=== PATIENT | female | born 1965 | race Caucasian/White ===

== ENCOUNTER 2018-12-06 17:32 | Inpatient (IN) ==
[2018-12-06] MEDS ORDERED: SOLU-MEDROL IV ONE (18:02)
[2018-12-06] MEDS ORDERED: ZOFRAN IV ONE (18:02)
[2018-12-06] MEDS ORDERED: NS 1,000 ML IV ONE (18:02)
[2018-12-06] MEDS ORDERED: DUONEB (A & A) INH ONE (18:02)
--- NOTE | 2018-12-06 18:11 | PROVIDER DOCUMENTATION ---
HPI-Respiratory General - General Chief Complaint: Shortness of Breath Stated Complaint: CHEST PAIN Time Seen by Provider: 12/06/18 18:01 Source: patient Allergies/Adverse Reactions: Patient Allergies Allergy/AdvReac Type Severity Reaction Status Date / Time No Known Allergies Allergy Verified 10/01/14 20:10 Home Medications: Home Medication List Medication Instructions Recorded Confirmed Last Taken Type Azithromycin 250 mg PO DAILY #3 tab 12/09/18 Unknown Rx CefDINIR [Omnicef] 300 mg PO BID #14 cap 12/09/18 Unknown Rx Ipratropium/Albuterol INH 1 puff INH RTQ6H #1 inhaler 12/09/18 Unknown Rx [Combivent Respimat Inhaler] Nicotine Patch [Nicoderm Patch] 7 mg TD DAILY #21 patch.td24 12/09/18 Unknown Rx Nicotine Patch [Nicoderm Patch] 14 mg TD DAILY #21 patch.td24 12/09/18 Unknown Rx Nicotine Patch [Nicoderm Patch] 21 mg TD DAILY #21 patch.td24 12/09/18 Unknown Rx Prednisone See Taper PO DAILY #30 tab 12/09/18 Unknown Rx - History of Present Illness-Resp Nature of Presenting Problem: HPI: Pt states that all of a sudden at 4 pm she started to have severe chest tightness, SOB, and feeling warm all over. she could not catch her breathe. She has a history of COPD and still smokes 1 PPD. she also states she was having nausea and vomiting. she denies CP. No abdominal pain. Quality of Pain: reports: none Severity in ED: reports: moderate Onset/Duration: reports: 1-3 hours ago Timing: reports: still present Exposure: reports: unknown cause Cough Quality/Degree: reports: moderate Episode Frequency: chronic episodes Current Respiratory Medication Therapy: Initiated albuterol/atrovent inhale, Initiated steroid inhaler Modifying Factors: improves with: exertion Associated Symptoms: reports: cough, dizziness, shortness of breath Similar Symptoms Previously?: Yes Recently seen or treated by another doctor?: No Review of Systems - Adult - REVIEW OF SYSTEMS - ADULT Constitutional: reports: no symptoms reported Eyes: reports: no symptoms reported Ears, Nose, Mouth & Throat: reports: no symptoms reported Cardiovascular: reports: no symptoms reported. denies: chest pain, orthopnea, palpitations, syncope Respiratory: reports: see HPI, cough, dyspnea on exertion, shortness of breath Gastrointestinal: reports: no symptoms reported Genitourinary: reports: no symptoms reported Musculoskeletal: reports: no symptoms reported Integumentary: reports: no symptoms reported Neurological: reports: no symptoms reported Psychiatric: reports: no symptoms reported Endocrine: reports: no symptoms reported Hematologic/Lymphatic: reports: no symptoms reported Allergic/Immunologic: reports: no symptoms reported All Other Systems: Reviewed and Negative Past History - Adult - PAST MEDICAL HISTORY-ADULT Review of Records: reports: Old Records Reviewed, Nursing Assessment Review, Medications Reviewed, Social history reviewed & non-contributory. Major Childhood Illnesses: reports: denies history Cardiovascular: reports: denies history Respiratory: reports: COPD Gastrointestinal: reports: denies history Obstetrical/Gynecological: reports: denies history Genitourinary: reports: denies history Musculoskeletal: reports: denies history Neurological: reports: denies history Psychiatric: reports: denies history Endocrine/Immune: reports: denies history Other Conditions: reports: denies history - PRIOR SURGERIES/PROCEDURES Surgical/Procedure History: reports: cholecystectomy - IMMUNIZATION STATUS Childhood Immunizations: UTD Flu Vaccine: NUTD - FAMILY HISTORY Family History: reviewed, not pertinent - SOCIAL HISTORY Smoking: cigarettes, greater than 1 pack/day Provider spent 3-5 mins advising pt. on dangers of tobacco.: Discussed manners to quit use, and f/u contacts for add'l counseling. Substance Use: none/never Alcohol Use Frequency: never Living Situation: family Physical Exam-General - PHYSICAL EXAM-ADULT Initial Vital Signs Reviewed: Yes - CONSTITUTIONAL General Appearance: mild distress - EYES Eyes: pink conjunctivae - HEAD, EARS, NOSE, MOUTH & THROAT HENMT: normocephalic/atraumatic, moist mucous membranes - NECK Neck: non-tender, full range of motion, supple - RESPIRATORY Respiratory: chest non-tender, lungs clear, no pleuratic chest pain, decreased breath sounds. negative: crackles, rales, rhonchi, stridor, wheezing - CARDIOVASCULAR Cardiovascular: normal peripheral pulses, no edema, no gallop, tachycardia - GASTROINTESTINAL (ABDOMEN) Abdominal Exam: normal bowel sounds, non tender, soft, no organomegaly. negative: distended, guarding, rigid, rebound, tenderness - MUSCULOSKELETAL Back Exam: normal inspection Extremity: normal range of motion, non-tender, normal gait Peripheral Pulses: radial (R): 2+, radial (L): 2+, dorsalis-pedis (R): 2+, dorsalis-pedis (L): 2+ - SKIN Integumentary: normal turgor, erythema - NEUROLOGIC Neurologic: grossly normal - PSYCHIATRIC Psych/Mental Status: normal mood/affect, normal thought content, normal thought process, oriented x 3 - HEART Score HEART Score: History: Slightly Suspicious HEART Score: ECG: Normal HEART Score: Age: 45-65 Years HEART Score: Risk Factors for Atherosclerotic Disease: 1 or 2 Risk Factors HEART Score: Troponin: < or = Normal Limit Total HEART Score:: 2 Progress - PLAN OF CARE/RESULTS Progress/Plan/Lab Results: Orders Category Date Time Status Admit - [facility] Routine AdmDCTranf 12/06/18 22:49 Active Activity - Up with Assistance ORDERED Care 12/06/18 22:49 Active Elevate Head of Bed DIRECTED Care 12/06/18 22:49 Active Encourage Fluids DIRECTED Care 12/06/18 22:49 Active Intake and Output-Strict Q 8-HR ASSESS Care 12/06/18 22:49 Active Nursing- Assist w/ IS as order ORDERED Care 12/06/18 22:49 Active Turn, Cough and Deep Breathe Q2HR Care 12/06/18 22:49 Active Vital Signs Order Q 8-HR ASSESS Care 12/06/18 22:49 Active Regular Diet Diet 12/06/18 Diet Enter Time Completed CT ANGIOGRM PULMONARY ARTERIES [CT] Stat Exams 12/06/18 18:14 Completed A1C HGB W EST AVG GLUCOSE [CHEM] Stat Lab 12/06/18 23:32 Completed ABG [RESP] Routine Lab 12/06/18 18:10 Completed BASIC METABOLIC PANEL [CHEM] Routine Lab 12/07/18 05:00 Completed CBC WITH DIFF [HEME] Routine Lab 12/07/18 05:00 Completed CBC WITH ELECTRONIC DIFF [HEME] Stat Lab 12/06/18 18:18 Completed CK PROFILE [SP CHEM] Stat Lab 12/06/18 18:18 Completed COMPREHENSIVE METABOLIC PANEL [CHEM] Stat Lab 12/06/18 18:18 Completed TROPONIN T Q6H Lab 12/06/18 23:32 Completed TROPONIN T Q6H Lab 12/07/18 05:00 Completed TROPONIN T Stat Lab 12/06/18 18:18 Completed 0.9% Sodium Chloride Inj [Ns] 1,000 ml Med 12/06/18 18:02 Discontinued IV 999 mls/hr Acetaminophen [Tylenol] Med 12/06/18 22:49 Discontinued 650 mg PO Q4H PRN PRN Albuterol 2.5MG/Ipratrop 0.5MG [Duoneb (A & A)] Med 12/06/18 18:02 Discontinued 3 ml INH NOW ONE Albuterol 2.5MG/Ipratrop 0.5MG [Duoneb (A & A)] Med 12/06/18 22:49 Discontinued 3 ml INH RTQ6H Arformoterol Neb [Brovana Neb] Med 12/07/18 07:30 Discontinued 15 microgm INH RTBID Azithromycin 500 mg/Ns [Zithromax 500 mg/Ns] Med 12/06/18 18:59 Discontinued 500 mg in 250 ml IV NOW Azithromycin 500 mg/Ns [Zithromax 500 mg/Ns] Med 12/07/18 18:00 Discontinued 500 mg in 250 ml IV Q24H CefTRIAXONE [Rocephin] 1 gm Med 12/06/18 18:59 Discontinued 0.9% Sodium Chloride Inj [Ns] 50 ml IV NOW CefTRIAXONE [Rocephin] 1 gm Med 12/07/18 16:00 Discontinued 0.9% Sodium Chloride Inj [Ns] 50 ml IV Q24H Enoxaparin [Lovenox] Med 12/06/18 22:49 Discontinued 40 mg SUBQ Q24H Famotidine [Pepcid] Med 12/06/18 22:49 Discontinued 20 mg PO BID Ibuprofen [Motrin] Med 12/06/18 22:49 Discontinued 600 mg PO Q6H PRN PRN Insulin Lispro [Humalog] Med 12/07/18 07:00 Discontinued See Protocol SUBQ 0700,1100,1600,2100 Methylprednisolone Sod Succ [Solu-Medrol] Med 12/06/18 23:00 Discontinued 40 mg IV Q8H Methylprednisolone Sod Succ [Solu-Medrol] Med 12/06/18 18:02 Discontinued 60 mg IV NOW ONE Nicotine Patch [Nicoderm Patch] Med 12/06/18 22:49 Discontinued 21 mg TD NOW ONE Ondansetron [Zofran] Med 12/06/18 18:02 Discontinued 4 mg IV NOW ONE Aerosol Treatments Routine Oth 12/06/18 18:03 Completed Aerosol Treatments Routine Ot 12/06/18 22:49 Completed Aerosol Treatments Stat Oth 12/06/18 18:03 Completed Aerosol Treatments Stat Ot 12/06/18 22:49 Completed Incentive Spirometer Routine Ot 12/06/18 22:49 Completed Oxygen Device Routine [facility] 12/06/18 22:49 Completed Pulse Oximetry Routine Ot 12/06/18 22:49 Completed EKG [EKG] Stat Ther 12/06/18 18:02 Draft Transfer/Admit Order [TRANSFER] Routine Transfer 12/06/18 20:58 Completed Result Diagrams: 12/09/18 07:10 12/09/18 07:10 - EKG 1 Time of EKG reading by physician:: 18:05 EKG Read and Signed by:: Ren Covington EKG Interpretation (*Must complete 3 of following elements*): Abnormal Rate: 121 Rhythm: sinus tachycardia Thor: normal QRS: normal TX Interval: normal ST Wave: normal Prior EKG Comparison: unchanged from prior - CT/MRI 1 Impression: Abnormal ([facility] [address] , [address], [place] [address] Department of Imaging Patient: MANAV BROWNADM Date: 12/06/18#: [id number] : 1965ADM Status: REG ERAcct#: [id number] Age/Sex: 53/FRoom/Bed: Loc: ED Ordering Physician: Ren Covington MD Family Physician: SOLA OMALLEY Reason for Procedure: fall Signed EXAM: CT ANGIOGRM PULMONARY ARTERIES INDICATION: fall TECHNIQUE: This exam was performed using automated exposure control, adjustment of mA or kV according to patient size, and/or use of iterative reconstruction technique. Thin section axial images and 3-D MIPS were obtained. COMPARISON: None. FINDINGS: There is no evidence of pulmonary embolism. There is mild thoracic aortic atherosclerotic disease. There is no evidence of aortic dissection or aneurysm. There is no cardiomegaly. There is no evidence of significant mediastinal or hilar lymphadenopathy. There are no abnormal mediastinal fluid collections. There are a couple of small patches of groundglass opacity in the upper lobes bilaterally suggesting mild nonspecific pneumonitis. There is mild linear scarring in the lingula and right middle lobe. The lungs are clear, otherwise. There is no pleural fluid collection and no pneumothorax. Limited views of the upper abdomen are grossly unremarkable. Limited views of the upper abdomen reveals a nonobstructing intrarenal stone at the upper pole of the right kidney. The upper abdomen is essentially unremarkable, otherwise. IMPRESSION: 1.A couple of small patches of groundglass opacity in the upper lobes bilaterally suggesting mild nonspecific pneumonitis. 2.No evidence of pulmonary embolism. 3.Other incidental/nonacute findings detailed above. Electronically signed by Daniel Green 12/06/2018 7:26 PM 12/06/181925 Interpreting Physician: Daniel Green MD Dictated Date/Time: 12/06/181918 cc: Ren Covington MD; SOLA OMALLEY) - CONSULTS/PCP/HOSPITALIST Notification #1 *Consult/PCP/Hospitalist*: [email or web address] Time Discussed: 22:30 Consult Disposition: Admit Departure - Departure Date of Disposition Decision: 12/06/18 Time of Disposition Decision: 22:30 DIAGNOSIS: COPD exacerbation Disposition: ADMITTED INPATIENT 09 Certified Medical Emergency: Emergent Condition: Stable - Critical Care Note This patient required my direct & personal management of CC.: No Attestation - Physician/ CHARLIE Attestation Patient care was provided by Advanced Practice Provider:: No The physician spent face to face time with patient:: Yes Advanced Practice Provider documentation review:: Supervising physician onsite and consulted in the evaluation and care of this patient. The physician did have a face to face encounter with the patient.
[2018-12-06 18:18] LABS: ALLEN TEST YES; BE -2.4 mmoll (-3.0-3.0); BLOOD TYPE ARTERIAL; HCO3-(ACT) 22.7 mmoll (20.0-26.0); METHB 1.1 % (0.0-1.5); O2(CT) 21.1 mL/dL (15.0-23.0); PCO2(98.6) 35 mmHg (35-45); PO2(98.6) 59 mmHg (60-100); SAMPLE BLOOD; SAO2 95.1 % (95.0-100.0); THB 17.1 g/dL (11.5-17.4)
[2018-12-06 18:22] LABS: MODALITY VENTIMASK
[2018-12-06 18:31] LABS: BASO# 0.03 X1000 (0.0-0.2); BASO% 0.2 % (0.0-0.8); EOS# 0.12 X1000 (0.0-0.7); EOS% 0.6 % (0.0-10.0); HEMATOCRIT 49.4 % (37.0-47.0); HEMOGLOBIN 17.1 g/dL (12.0-16.0); IMM GRAN% 0.5 % (0.0-0.5); LYMPH% 15.5 % (20.5-51.1); MCH 30.8 PG (27-31); MCHC 34.6 g/dL (33-37); MONO# 1.38 X1000 (0.11-0.59); MONO% 7.1 % (1.7-9.3); MPV 10.4 FL (7.4-10.4); NEUT# 14.77 X1000 (1.4-6.5); NEUT% 76.1 % (42.2-75.2); PLT 352 X1000 (130-400); RBC 5.55 XMIL (4.2-5.4); RDW 12.6 % (11.5-14.5)
[2018-12-06 18:55] LABS: AGAP 17; ALB/GLOB RATIO 1.9; ALBUMIN 4.3 g/dL (3.5-5.0); ALKALINE PHOSPHATASE 119 U/L (32-104); BUN 15 mg/dL (8-22); CALCIUM 9.1 mg/dL (8.8-10.2); CHLORIDE 104 mmol/L (98-107); CK PROFILE 48 U/L (24-173); COSMO 289; CREATININE 0.9 mg/dL (0.5-0.9); ESTIMATED GFR > 60; GLUCOSE 218 mg/dL (70-104); GOT 11 U/L (10-30); GPT 12 U/L (10-36); POTASSIUM 3.7 mmol/L (3.5-5.1); SODIUM 141 mmol/L (136-145); TCO2 20 mmol/L (25-35); TOTAL BILIRUBIN 0.26 mg/dL (0.20-1.00); TOTAL PROTEIN 6.6 g/dL (6.3-8.3)
[2018-12-06] MEDS ORDERED: ZITHROMAX 500 MG/NS 500 MG/250 ML IVPB IV ONE (18:59)
[2018-12-06] MEDS ORDERED: ROCEPHIN 1 GM in NS 50 ML IV ONE (18:59)
--- NOTE | 2018-12-06 19:28 | Diag Imaging Result Doc PS360 ---
EXAM: CT ANGIOGRM PULMONARY ARTERIES INDICATION: fall TECHNIQUE: This exam was performed using automated exposure control, adjustment of mA or kV according to patient size, and/or use of iterative reconstruction technique. Thin section axial images and 3-D MIPS were obtained. COMPARISON: None. FINDINGS: There is no evidence of pulmonary embolism. There is mild thoracic aortic atherosclerotic disease. There is no evidence of aortic dissection or aneurysm. There is no cardiomegaly. There is no evidence of significant mediastinal or hilar lymphadenopathy. There are no abnormal mediastinal fluid collections. There are a couple of small patches of groundglass opacity in the upper lobes bilaterally suggesting mild nonspecific pneumonitis. There is mild linear scarring in the lingula and right middle lobe. The lungs are clear, otherwise. There is no pleural fluid collection and no pneumothorax. Limited views of the upper abdomen are grossly unremarkable. Limited views of the upper abdomen reveals a nonobstructing intrarenal stone at the upper pole of the right kidney. The upper abdomen is essentially unremarkable, otherwise. IMPRESSION: 1.A couple of small patches of groundglass opacity in the upper lobes bilaterally suggesting mild nonspecific pneumonitis. 2.No evidence of pulmonary embolism. 3.Other incidental/nonacute findings detailed above. Electronically signed by Daniel Green 12/06/2018 7:26 PM
[2018-12-06] MEDS ORDERED: TYLENOL PO PRN (22:49)
[2018-12-06] MEDS ORDERED: NICODERM PATCH TD ONE (22:49)
--- NOTE | 2018-12-06 23:13 | HISTORY AND PHYSICAL ---
REASON FOR ADMISSION: Acute shortness of breath today. PRIMARY CARE PHYSICIAN: None. HISTORY OF PRESENT ILLNESS: Ms. Amanda Castro is a 53-year-old woman with past medical history of long-standing COPD, and is not followed up by any particular physician. She also smokes about a pack a day (patient says she wants to quit smoking in light of today's events). Said that while she was home early hours of this morning she developed sudden acute dyspnea and shortly afterwards started having coughing fits productive of yellowish-whitish sputum. No hemoptysis. Subsequently even threw up once at home, nonbloody emesis. Thereafter, her breathing got progressively worse, she started having profound palpitations and a left-sided chest pressure, nonradiating. She says the pain has eased some but still persist and was never relieved. She felt as if she was swelling from inside and about to burst. She admits to having some chills but no fever. She denies any PND or orthopnea. She denies any contact with anybody with colds. The [id number] at bedside says she noticed that the patient has been having bloodshot eyes which have gotten better. Patient also admits to having some mild oculonasal pruritus and occasional sneezing spells. Other than that, patient denies any GI or complaints. Denies any focal neurological complaints. No arthralgias or rash. REVIEW OF SYSTEMS: Twelve system review was done. Positive findings per HPI. ALLERGIES: No known allergies. MEDICATIONS: None. SOCIAL HISTORY: Smokes 1 pack a day. Lives alone. Does not do any alcohol or use drugs. FAMILY HISTORY: Only notable for ovarian cancer. SURGICAL HISTORY: Only cholecystectomy. LABORATORY WORK: White count 19,000, H and H 17 and 49, platelets 352,000, with 76% neutrophils. Potassium 3.2, BUN 15, creatinine 0.9. Glucose 218, alkaline phosphatase 119. Troponin's negative. Blood gas shows a pH of 7.40, pCO2 of 35, PO2 of 59, and this was on 2 L, carboxyhemoglobin was elevated at 64, O2 saturation was 88%. IMAGING: A CT pulmonary angiogram was done, showed couple small patches of ground-glass opacity in the upper lobes suggesting mild nonspecific pneumonitis. No evidence of PE was noted. There is some mild thoracic aortic atherosclerotic disease noted. PHYSICAL EXAMINATION: VITAL SIGNS: Blood pressure 142/89, heart rate is 105 ,temperature is 98, she has 94% on 6 L. GENERAL: She is a middle-aged woman who is in mild respiratory distress. She is A and O x3. Normal mood and affect. HEENT: Head is normocephalic, atraumatic. Eyes, ANDREAS, EOMI. She is anicteric, not pale. ENT exam is grossly normal. NECK: Supple. No JVD or carotid bruit. No thyromegaly. CHEST: Decreased entry in both lung bejarano with bilateral wheezes in the bases. CARDIOVASCULAR SYSTEM: 1st and 2nd heart sounds heard. No gallops, murmurs, rubs. Regular. ABDOMEN: Protuberant, soft, nontender. No masses or organomegaly. Bowel sounds are hypoactive. Rectal exam deferred at this time. EXTREMITIES: No edema, clubbing, or peripheral cyanosis. Good pulses distally. Good volume distally, irregular, symmetrical. NEUROLOGICAL: No focal deficits. No asterixis, no tremors. SKIN: Intact. No breakdown, lesions, or erythema. MUSCULOSKELETAL: Grossly normal. ASSESSMENT: 1. Chronic obstructive pulmonary disease with possible community-acquired pneumonia. 2. Hyperglycemia. Possible new onset type 2 diabetes. 3. Tobacco use. PLAN: Patient will be started on a moderate dose of steroids, but more importantly, short and long-acting bronchodilators with Rocephin and Zithromax to cover for community-acquired pneumonia. The patient has had an A1c ordered and will put on sliding scale. If her A1c is elevated and suggestive of diabetes, then will consult dietitian. Smoking cessation was reiterated. The patient wants to quit at all costs in light of the events today. The patient should be evaluated for home O2 prior to discharge. Patient also needs to be set up with a local primary care physician. cc: Matilde Rodgers MD
[2018-12-06] MEDS: LOVENOX SUBQ SCH (23:32)
[2018-12-06] MEDS: PEPCID PO SCH (23:33)
[2018-12-06] MEDS: DUONEB (A & A) INH SCH (23:45)
[2018-12-07 00:38] LABS: HEMOGLOBIN A1C 5.1 % (4.8-6.0)
[2018-12-07] MEDS: SOLU-MEDROL IV SCH ×4 (01:20→18:59)
[2018-12-07] MEDS: DUONEB (A & A) INH SCH ×4 (03:16→21:56)
[2018-12-07 06:19] LABS: BASO# 0.01 X1000 (0.0-0.2); BASO% 0.1 % (0.0-0.8); HEMATOCRIT 44.4 % (37.0-47.0); HEMOGLOBIN 14.9 g/dL (12.0-16.0); IMM GRAN# 0.04 X1000 (0.0-0.04); IMM GRAN% 0.2 % (0.0-0.5); LYMPH# 0.92 X1000 (1.2-3.4); LYMPH% 5.5 % (20.5-51.1); MCH 30.5 PG (27-31); MCHC 33.6 g/dL (33-37); MONO# 0.26 X1000 (0.11-0.59); MONO% 1.5 % (1.7-9.3); MPV 10.7 FL (7.4-10.4); NEUT# 15.62 X1000 (1.4-6.5); NEUT% 92.7 % (42.2-75.2); PLT 235 X1000 (130-400); RBC 4.88 XMIL (4.2-5.4); RDW 12.7 % (11.5-14.5); WBC 16.85 X1000 (4.8-10.8)
[2018-12-07] MEDS: HUMALOG SUBQ SCH ×4 (06:31→22:03)
[2018-12-07 06:37] LABS: AGAP 15; BUN 12 mg/dL (8-22); CHLORIDE 103 mmol/L (98-107); COSMO 286; CREATININE 0.7 mg/dL (0.5-0.9); ESTIMATED GFR > 60; GLUCOSE 184 mg/dL (70-104); POTASSIUM 4.4 mmol/L (3.5-5.1); SODIUM 141 mmol/L (136-145); TCO2 23 mmol/L (25-35)
--- NOTE | 2018-12-07 06:52 | EKG Report ---
Test Performed on : 12/06/2018 6:05:51 PM Test Reason : sob Blood Pressure : / mmHG Vent. Rate : 121 BPM Atrial Rate : 121 BPM P-R Int : 128 ms QRS Dur : 088 ms QT Int : 352 ms P-R-T Axes : 079 072 067 degrees QTc Int : 499 ms Sinus tachycardia. Possible Left atrial enlargement Nonspecific ST abnormality Abnormal ECG No previous ECGs available Unconfirmed Result
[2018-12-07] MEDS ORDERED: BROVANA NEB ONE ×2 (07:04)
[2018-12-07 07:06] LABS: LYMPHS 6 % (21-51); SEGS 94 % (42-75)
[2018-12-07] MEDS: MOTRIN PO PRN ×2 (07:49→16:24)
[2018-12-07] MEDS: PEPCID PO SCH ×2 (09:59→22:02)
[2018-12-07] MEDS: BROVANA NEB INH SCH ×2 (10:15→21:56)
--- NOTE | 2018-12-07 15:38 | PROGRESS NOTE ---
DATE: 12/07/2018 She was examined in the ER. SUBJECTIVE: The patient has no major complaints. Breathing is a bit improved. OBJECTIVE: Blood pressure is 111/73, heart rate of 101, respiratory rate 18, and temperature 98 degrees. She is 99% on 3 L.Cardiovascular: Regular rate and rhythm. Pulmonary: Bilateral breath sounds clear to auscultation. GI: Soft, nontender, and nondistended. Bowel sounds are positive. LABORATORY DATA: White count is down to 16, hemoglobin and hematocrit of 14 and 44, platelets 235,000. Basic was normal. Troponin's were normal. PROBLEMS: 1. Acute chronic obstructive pulmonary disease exacerbation. We will continue empiric antibiotics, steroids, breathing treatments, and follow clinically. 2. Pneumonitis at least early pneumonia. She has a kind of interstitial pattern. She is on Rocephin and azithromycin. We will continue that for the time being. 3. Hypoxic respiratory failure. We will work on trying to wean her O2 down as tolerated. Advised on smoking cessation. 4. Hyperglycemia without clear evidence of diabetes. Her blood sugar was 218, and her fasting was elevated at 184. This may be steroid related. Her A1c is only 5 so at this point I am not committing her to a diagnosis of that. We will monitor her blood sugars and treat accordingly. DISPOSITION: Pending her clinical status, anticipate discharge in the next day or 2. cc: Zak Delgado MD
[2018-12-07] MEDS: ROCEPHIN 1 GM in NS 50 ML IV SCH (16:26)
[2018-12-07] MEDS ORDERED: NS 500 ML ONE (16:28)
[2018-12-07] MEDS: ZITHROMAX 500 MG/NS 500 MG/250 ML IVPB IV SCH (18:58)
[2018-12-07] MEDS: LOVENOX SUBQ SCH (22:02)
[2018-12-08] MEDS: SOLU-MEDROL IV SCH ×3 (01:00→17:15)
[2018-12-08] MEDS: DUONEB (A & A) INH SCH ×3 (03:23→16:46)
[2018-12-08] MEDS: MOTRIN PO PRN (06:23)
[2018-12-08] MEDS: HUMALOG SUBQ SCH ×2 (06:23→12:35)
[2018-12-08] MEDS ORDERED: BROVANA NEB ONE (07:23)
[2018-12-08] MEDS: PEPCID PO SCH ×2 (08:17→21:04)
[2018-12-08] MEDS: BROVANA NEB INH SCH ×2 (10:31→22:00)
[2018-12-08 11:28] LABS: HEMATOCRIT 41.3 % (37.0-47.0); HEMOGLOBIN 13.9 g/dL (12.0-16.0); MCH 30.8 PG (27-31); MCHC 33.7 g/dL (33-37); MCV 91.6 FL (81-99); MPV 10.3 FL (7.4-10.4); RBC 4.51 XMIL (4.2-5.4); RDW 13.1 % (11.5-14.5); WBC 25.54 X1000 (4.8-10.8)
[2018-12-08 12:13] LABS: AGAP 11; BUN 14 mg/dL (8-22); CALCIUM 9.4 mg/dL (8.8-10.2); CHLORIDE 110 mmol/L (98-107); COSMO 289; CREATININE 0.7 mg/dL (0.5-0.9); ESTIMATED GFR > 60; GLUCOSE 121 mg/dL (70-104); POTASSIUM 3.9 mmol/L (3.5-5.1); SODIUM 144 mmol/L (136-145); TCO2 23 mmol/L (25-35)
[2018-12-08] MEDS: ROCEPHIN 1 GM in NS 50 ML IV SCH (16:54)
[2018-12-08] MEDS: HUMULIN R SUBQ SCH (17:50)
[2018-12-08] MEDS: ZITHROMAX 500 MG/NS 500 MG/250 ML IVPB IV SCH (17:51)
--- NOTE | 2018-12-08 18:05 | PROGRESS NOTE ---
DATE: 12/08/2018 SUBJECTIVE: Patient has no major complaints. She is breathing comfortably. Overall feels improved. OBJECTIVE: Blood pressure is 134/62, heart rate 78, respiratory rate 17, temperature 97.9, 97% on 2 L.Cardiovascular: Regular rate and rhythm. Pulmonary: Bilateral breath sounds with some mild wheezing, but no major wheezing. Gastrointestinal: Soft, nontender, nondistended. Bowel sounds are positive. LABORATORY: White count is up to 25,000, but she is on steroids. Platelets 255,000. Basic was okay. PROBLEM LIST: 1. chronic obstructive pulmonary disease exacerbation. We will continue antibiotics. I am going to wean her steroids. She is not on a lot of steroids, but I am going to back them him down a little bit and follow. 2. Interstitial pneumonia. She is on Rocephin and azithromycin. We will continue those for the time being. 3. Relative hyperglycemia. Her sugars are, the first one was elevated, but her fasting one was also elevated, but her A1c is only 5.1. I think this is just steroid induced. So, we are just going to monitor it. I am not going to commit her to a diabetes diagnosis at this point. DISPOSITION: Pending her clinical status. We need to wean her O2 and follow closely. cc: Zak Delgado MD
[2018-12-08] MEDS: LOVENOX SUBQ SCH (22:00)
[2018-12-09] MEDS: DUONEB (A & A) INH SCH ×4 (03:25→15:38)
[2018-12-09] MEDS: SOLU-MEDROL IV SCH (04:01)
[2018-12-09 07:44] LABS: BASO# 0.01 X1000 (0.0-0.2); BASO% 0.1 % (0.0-0.8); EOS# 0.01 X1000 (0.0-0.7); EOS% 0.1 % (0.0-10.0); HEMATOCRIT 42.5 % (37.0-47.0); HEMOGLOBIN 13.9 g/dL (12.0-16.0); IMM GRAN# 0.08 X1000 (0.0-0.04); IMM GRAN% 0.5 % (0.0-0.5); MCH 30.2 PG (27-31); MCHC 32.7 g/dL (33-37); MCV 92.4 FL (81-99); MONO# 0.88 X1000 (0.11-0.59); MONO% 5.1 % (1.7-9.3); MPV 10.4 FL (7.4-10.4); NEUT# 14.93 X1000 (1.4-6.5); NEUT% 87.2 % (42.2-75.2); PLT 243 X1000 (130-400); RDW 13.4 % (11.5-14.5); WBC 17.11 X1000 (4.8-10.8)
[2018-12-09] MEDS: BROVANA NEB INH SCH (07:47)
[2018-12-09 07:58] LABS: AGAP 6; BUN 14 mg/dL (8-22); CALCIUM 8.9 mg/dL (8.8-10.2); CHLORIDE 105 mmol/L (98-107); COSMO 280; CREATININE 0.5 mg/dL (0.5-0.9); ESTIMATED GFR > 60; GLUCOSE 130 mg/dL (70-104); POTASSIUM 4.1 mmol/L (3.5-5.1); SODIUM 139 mmol/L (136-145); TCO2 28 mmol/L (25-35)
[2018-12-09] MEDS: PEPCID PO SCH (08:39)
[2018-12-09] MEDS: MOTRIN PO PRN (08:41)
[2018-12-09] MEDS: HUMULIN R SUBQ SCH (08:44)
[2018-12-09] MEDS ORDERED: HUMULIN R SUBQ SCH (11:00)
[2018-12-09 14:02] LABS: MYCOPLASMA PNEUMONIAE AB SEE COMMENTS
[2018-12-09] MEDS ORDERED: ZITHROMAX PO ONE (15:06)
[2018-12-09 15:15] VITALS: BP 116/70
[2018-12-09] MEDS: ROCEPHIN 1 GM in NS 50 ML IV SCH (15:27)
[2018-12-09] MEDS ORDERED: PNEUMOVAX 23 IM ONE (16:45)
--- NOTE | 2018-12-10 04:04 | DISCHARGE SUMMARY ---
ADMISSION DATE: 12/06/2018 DISCHARGE DATE: 12/09/2018 DISCHARGE DIAGNOSES: 1. Chronic obstructive pulmonary disease exacerbation, acute. 2. Interstitial pneumonia. 3. Hyperglycemia likely related to steroid usage. HOSPITAL COURSE: Briefly, this is a 53-year-old female, she was admitted per Dr. Rodgers on 12/07/2018 with COPD. She was mildly hypoxic at that time, the lowest I have seen though is 89%. In any case the patient was admitted for treatment, antibiotics, hypoxic respiratory failure. She was a bit hyperglycemic, the highest blood sugar is 218. The patient is overall improved. We did do a urine Legionella which was negative, and we did a mycoplasma which was positive IgG, but negative IgM which is not very specific and probably not consistent with acute mycoplasma. Her CTA though showed some patchy ground-glass in the upper lobes suggesting mild nonspecific pneumonitis. She improved very quickly with antibiotics, steroids, and breathing treatments. She has no known history of COPD, but she does have a longstanding smoking history I want to say at least [id number] history, possibly more. The patient clinically improved, recorded that her sats were 100% on room air, 97%, again the lowest has been 89%. Her wheezing had completely resolved the day of discharge, and she was motivated to go home and felt stable to go home. We had a discussion about tobacco cessation, need for pulmonary function test as an outpatient when stable. Follow up chest x-ray in 4-6 weeks to make sure that the pneumonia had resolved. PFTs, follow up chest x-ray. DISCHARGE MEDICATIONS: Azithromycin 250 daily for 3 days, Combivent q.6 hours, Nicoderm patch taper 21 mg for 3 weeks, 14 for 3 weeks, 7 for 3 weeks. Omnicef 300 p.o. b.i.d. for 7 days, and a prednisone taper. She was to return for worsening shortness of breath or cough. TIME SPENT: Was 32 minute for discharge. cc: MD Love Bach CRNP
== END 2018-12-09 19:01 | disposition home or self-care (01) | DRG 190 ==
LOC: SUPCPDRO → ED 17:32 → SUATTDRO 22:33 → EDIPHOLD 22:33 → 3N 12-07 11:09
PROVIDERS: ATTEND Internal Medicine
CPT/HCPCS: 71275; 80048; 80053; 82550; 82805; 82948; 83036; 84484; 85025; 85027; 86738; 87070; 87205; 87275; 87276; 87449; 87804; 87899; 90732; 93005; 94640; 94761; 94799; 96365; 96366; 96367; 96372; 96375; 96376; 99285; A9270; J0456; J0696; J1650; J1815; J2405; J2920; J2930; J7030; J7040; Q9967; XXXXX